=== PATIENT | female | born 1995 | race American Indian/Alaskan Native ===

== ENCOUNTER 2017-10-10 16:30 | Emergency (ER) | payer SELFPAY ==
[2017-10-10 16:45] VITALS: BP 114/81
[2017-10-10 19:37] LABS: Bilirubin,Urine NEG (Negative); Blood,Urine NEG (Negative); Color,Urine Yellow (Yellow); Nitrite,Urine NEG (Negative); Protein,Urine <15 mg/dL mg/dL (Negative); Urobilinogen,Urine < 2.0 mg/dL (<2.0)
[2017-10-10 19:38] LABS: HCG Qualitative,Urine Negative (Negative)
== END 2017-10-10 21:27 | disposition left against medical advice (07) ==
LOC: ED 16:30
DX: R10.9 Unspecified abdominal pain (principal); Z53.21 Procedure and treatment not carried out due to patient leaving prior to being seen by health care provider
CPT/HCPCS: 81001; 81025

== ENCOUNTER 2018-03-06 10:18 | Emergency (ER) | payer SELFPAY ==
[2018-03-06] MEDS ORDERED: BOOSTRIX IM ONE (11:12)
[2018-03-06] MEDS ORDERED: XYLOCAINE 1% 20 mL INFILTRATI ONE (11:12)
--- NOTE | 2018-03-06 11:14 | Emergency Department Report ---
- General Chief Complaint: Wound/Laceration Stated Complaint: RIGHT HAND LACERATION Time Seen by Provider: 03/06/18 11:02 Source: patient Mode of arrival: Ambulatory Limitations: No Limitations - History of Present Illness Initial Comments: 22 yo female with no significant past medical history presents to Hospital complaints of laceration to right hand. Patient is right-hand dominant. She states a mirror broke and fell her hand causing a laceration. Full range of motion of fingers. Pain is mild to moderate intensity and worse palpation. Tetanus not up to date. - Related Data Allergies Allergy/AdvReac Type Severity Reaction Status Date / Time No Known Allergies Allergy Verified 03/06/18 11:58 ED Review of Systems ROS: Stated complaint: RIGHT HAND LACERATION Other details as noted in HPI Comment: All other systems reviewed and negative ED Past Medical Hx - Past Medical History Previous Medical History?: No - Surgical History Past Surgical History?: Yes Additional Surgical History: 06-10-2013 - Social History Smoking Status: Current Every Day Smoker Substance Use Type: None ED Physical Exam - General Limitations: No Limitations - Other Other exam information: General: No limitations, patient is alert in no acute distress Head exam: Atraumatic, normocephalic Eyes exam: Normal appearance ENT: Moist mucous membrane, normal oropharynx Neck exam: Normal inspection, full range of motion, no meningismus nontender Respiratory exam: Clear to auscultation bilateral, no wheezes, rales, crackles Cardiovascular: Normal rate and rhythm, normal heart sounds Abdomen: Soft, nondistended, and nontender, with normal bowel sounds, no rebound, or guarding Extremity: Full range of motion Back: Normal Inspection, full range of motion, no tenderness Neurologic: Alert, oriented x3, cranial nerves intact, no motor or sensory deficit Psychiatric: normal affect, normal mood Skin: ED Course Vital Signs 03/06/18 10:42 Temperature 98.6 F Pulse Rate 65 Respiratory 16 Rate Blood Pressure 125/90 O2 Sat by Pulse 100 Oximetry - Laceration /Wound Repair Right Hand Wound Location: upper extremity (right hand) Wound Length (cm): 2 Wound's Depth, Shape: linear Wound Explored: clean Irrigated w/ Saline (ccs): 500 (with betadine) Betadine Prep?: Yes Anesthesia: 1% Lidocaine Volume Anesthetic (ccs): 3 Wound Debrided: minimal Wound Repaired With: sutures Suture Size/Type: 4:0, nylon Number of Sutures: 5 Layer Closure?: No Sterile Dressing Applied?: Yes ED Medical Decision Making - Radiology Data Radiology results: report reviewed Right hand 3 views: History: Laceration with broken glass. Findings: No bony or articular abnormality or fracture. No soft tissue foreign body. Impression: Essentially negative right hand. - Medical Decision Making Right hand laceration No clinical signs of tendon injury X-ray negative Repaired with sutures Dressing applied Follow-up encouraged - Differential Diagnosis tendon injury, laceration, fracture Critical Care Time: No Critical care attestation.: If time is entered above; I have spent that time in minutes in the direct care of this critically ill patient, excluding procedure time. ED Disposition Clinical Impression: Hand laceration Qualifiers: Encounter type: initial encounter Foreign body presence: without foreign body Laterality: right Qualified Code(s): S61.411A - Laceration without foreign body of right hand, initial encounter Disposition: DC- TO HOME OR SELFCARE Is pt being admited?: No Does the pt Need Aspirin: No Condition: Stable Instructions: Laceration (ED) Additional Instructions: Monitor for signs of infection (as per discharge instructions). Have stitches removed in 7-10 days may return here or follow with your primary care doctor Referrals: [facility] [Provider Group] - 7-10 days PRIMARY CARE, [Primary Care Provider] - 7-10 days Time of Disposition: 12:34
[2018-03-06] MEDS ORDERED: NACL 0.9% 500 ML IR ONE (11:54)
--- NOTE | 2018-03-06 12:27 | XRay Report ---
Right hand 3 views: History: Laceration with broken glass. Findings: No bony or articular abnormality or fracture. No soft tissue foreign body. Impression: Essentially negative right hand.
[2018-03-06] MEDS ORDERED: TRIPLE ANTIBIOTIC TP ONE ×2 (12:38→13:42)
[2018-03-06 13:11] VITALS: BP 118/62
[2018-03-06] MEDS ORDERED: NACL 0.9% IR ONE (13:40)
== END 2018-03-06 13:09 | disposition home or self-care (01) ==
LOC: ED 10:18
DX: S61.411A Laceration without foreign body of right hand, initial encounter (principal); W18.30XA Fall on same level, unspecified, initial encounter; Y93.89 Activity, other specified; Y92.89 Other specified places as the place of occurrence of the external cause; Y99.8 Other external cause status; F17.200 Nicotine dependence, unspecified, uncomplicated
CPT/HCPCS: 90471; 90715; A6250